=== PATIENT | female | born 1985 | race Caucasian/White ===

== ENCOUNTER 2018-01-25 23:19 | Emergency (ER) | payer OTHER ==
[~2018-01-25] VITALS: Ht 165.1 cm; Wt 64.9 kg
[2018-01-25] MEDS ORDERED: PROPRANOLOL HCL 10 MG TAB (23:35)
[2018-01-25] MEDS ORDERED: ASPIRIN EC 81 MG TABLET (23:35)
--- NOTE | 2018-01-25 23:37 | NUR ---
admitted to [facility] ambulatory c/o pain on left index finger.dr kimbrough will see pt.
[2018-01-25] MEDS ORDERED: OXYCODONE/APAP 5-325 MG TABLET PO ONE (23:45)
[2018-01-25] MEDS ORDERED: ONDANSETRON ODT 4 MG TAB.RAPDIS SL ONE (23:45)
[2018-01-25] MEDS ORDERED: ONDANSETRON ODT 4 MG TAB.RAPDIS ONE (23:47)
[2018-01-25] MEDS ORDERED: OXYCODONE/APAP 5-325 MG TABLET ONE (23:47)
--- NOTE | 2018-01-26 00:08 | NUR ---
cleaned left index finger with betadine mendoza. & covered with bandaid drsg. after xray done.
[2018-01-26 00:09] VITALS: BP 120/75
--- NOTE | 2018-01-26 00:12 | NUR ---
Patient discharged to home in stable conditon. Written and verbal after care instructions given. Patient verbalizes understanding of instructions.
== END 2018-01-26 00:13 | disposition home or self-care (01) ==
LOC: ER 23:21
DX: S67.191A Crushing injury of left index finger, initial encounter (principal); S60.411A Abrasion of left index finger, initial encounter; W23.0XXA Caught, crushed, jammed, or pinched between moving objects, initial encounter; Y93.89 Activity, other specified; Y92.89 Other specified places as the place of occurrence of the external cause; Y99.8 Other external cause status
CPT/HCPCS: 73140; A4663; Q0162